=== PATIENT | male | born 1960 | race Hispanic/Latino ===

== ENCOUNTER 2018-02-14 20:39 | Emergency (ER) | payer OTHER ==
[~2018-02-14] VITALS: Ht 177.8 cm; Wt 120.2 kg
[2018-02-14 21:04] VITALS: BP 187/106
--- NOTE | 2018-02-14 21:32 | DIREP ---
PROCEDURE:XRAY WRIST MIN 3VW-LT COMPARISON:None. INDICATIONS:PAIN FINDINGS: BONES:Normal. JOINTS:Normal. SOFT TISSUES:Normal. OTHER:No additional findings. CONCLUSION:No acute fracture. Consider follow-up radiographs in 7-10 days if clinical symptoms persist Dictated by: John Rodriguez DO on 02/14/2018 at 09:29 PM
--- NOTE | 2018-02-14 21:43 | ER.PDOC ---
General Chief Complaint: Extremities Stated Complaint: ARM INJURY Time seen by MD: 21:36 Source: patient Exam Limitations: no limitations History of Present Illness Initial Comments Pt had a crush injury on left forearm yesterday, got bruising and pain on left forearm and wrist Occurred: yesterday Recent Injury: Yes Where: work Severity: moderate Exacerbated By: movement of Relieved By: rest Quality: pain, swelling Allergies: Coded Allergies: No Known Allergies (Unverified , 02/14/18) Past Medical History Medical History: diabetes, high cholesterol, hypertension Social History Smoking: non-smoker Alcohol Use: sober Drug Use: none Review of Systems Constitutional: no symptoms reported EENTM: no symptoms reported Respiratory: no symptoms reported Cardiovascular: no symptoms reported Gastrointestinal: no symptoms reported Genitourinary: no symptoms reported Musculoskeletal: see HPI Skin: no symptoms reported Psychiatric/Neurological: no symptoms reported Physical Exam General Appearance: alert, no distress Upper Extremity: tenderness (left forearm, with abrasions and contusions), swelling Skin: color nml, warm/dry Vascular: no vascular compromise Neuro/Psych: sensation nml, motor nml Central Exam: oriented X3, CN's nml as tested, nml speech, nml cognition, nml mood/affect EENT: eyes nml inspection, ENT nml inspection, pharynx nml Neck/Back: nml inspection Respiratory: no resp distress, breath sounds nml CVS: reg rate & rhythm, heart sounds nml Abdomen: non-tender, no organomegaly, nml bowels sounds Departure Time of Disposition: 21:42 Disposition: 01 HOME, SELF-CARE Impression: Primary Impression: Contusion of left forearm, initial encounter Condition: Stable Patient Instructions: Contusion, [id number] Referrals: UNDEFINED,PHYSICIAN (PCP) PRIMARY CARE PROVIDER Duration or Time Spent with Pa: HOWARD HENSON MD Feb 14, 2018 21:43
[2018-02-14 23:11] VITALS: BP 187/106
== END 2018-02-14 22:05 | disposition home or self-care (01) ==
LOC: ER 20:39
DX: S50.12XA Contusion of left forearm, initial encounter (principal); E11.9 Type 2 diabetes mellitus without complications; E78.00 Pure hypercholesterolemia, unspecified; I10 Essential (primary) hypertension; X58.XXXA Exposure to other specified factors, initial encounter; Y93.89 Activity, other specified; Y92.69 Other specified industrial and construction area as the place of occurrence of the external cause; Y99.0 Civilian activity done for income or pay
CPT/HCPCS: 99284; 73110-LT